=== PATIENT | female | born 1960 | race Caucasian/White ===

== ENCOUNTER 2019-02-07 10:29 | Outpatient (REF) | payer BC, SELFPAY ==
[2019-02-07 13:52] LABS: ALT 29 U/L (12-78); AST 24 U/L (15-37); Albumin 3.6 g/dL (3.4-5.0); Alkaline Phosphatase 77 U/L (46-116); Anion Gap 9.1 mmol/L (3-11); BUN 16 mg/dL (7-18); Bilirubin, Total 0.2 mg/dL (0.2-1.0); CO2 27.9 mmol/L (21.0-32.0); CREATININE 0.76 mg/dL (0.55-1.02); Calcium 9.1 mg/dL (8.5-10.1); Chloride 101 mmol/L (98-107); Glucose 93 mg/dL (70-100); Potassium 4.2 mmol/L (3.5-5.1); Sodium 138 mmol/L (136-145); Total Protein 6.6 g/dL (6.4-8.2)
== END 2019-02-07 10:49 ==
LOC: NCHCN 10:29
PROVIDERS: Visit Provider Nurse Practitioner
DX: I10 Essential (primary) hypertension (principal); Z13.220 Encounter for screening for lipoid disorders; Z13.29 Encounter for screening for other suspected endocrine disorder
CPT/HCPCS: 80053; 84443

== ENCOUNTER 2019-02-20 10:38 | Outpatient (CLI) | payer BC, SELFPAY ==
--- NOTE | 2019-02-20 11:29 | DI.MAMMO_ITS ---
SYMPTOM/DIAGNOSIS: SCREENING, Z12.31 MAMMOGRAMS: Mammograms were interpreted according to the usual protocol including computer analysis with CAD system, tomosynthesis and C view imaging. There are no priors for comparison. No suspicious microcalcifications are seen. No suspicious masses are seen in the left breast. There is an asymmetric breast tissue in the upper outer quadrant of the right breast. This area should be further evaluated with spot compression view. Ultrasound may be indicated at that time. IMPRESSION: Additional views of the right breast as described above. Category 0, breast density B. MQSA ASSESSMENT OF FINDINGS: Incomplete: Needs additional imaging evaluation. Category 0. Patient will receive a letter notifying them of these results. BI-RADS category B. There are scattered areas of fibroglandular density.
== END 2019-02-20 10:58 ==
PROVIDERS: PCP Nurse Practitioner; Visit Provider Nurse Practitioner
DX: Z12.31 Encounter for screening mammogram for malignant neoplasm of breast (principal); R92.8 Other abnormal and inconclusive findings on diagnostic imaging of breast
CPT/HCPCS: 77063; 77067

== ENCOUNTER 2019-02-27 00:44 | Outpatient (CLI) | payer BC, SELFPAY ==
--- NOTE | 2019-02-27 10:50 | DI.COMBO_ITS ---
SYMPTOMS/DIAGNOSIS: F/U MAMMO, ASYMMETRIC TISSUE UPPER OUTER QUAD RT BREAST ADDITIONAL VIEWS OF THE RIGHT BREAST AND RIGHT BREAST ULTRASOUND: Additional images are interpreted according to the usual protocol including tomosynthesis and 2D imaging. CC and MLO spot compression views were performed for areas of asymmetry in the upper outer quadrant of the right breast. No persistent mass is identified on the additional views performed. Right breast ultrasound shows no evidence of solid mass or cyst. IMPRESSION: Category I, negative mammogram. Yearly screening mammography is recommended. Breast density Category B. MQSA ASSESSMENT OF FINDINGS: Negative. Category 1. Patient will receive a letter notifying them of these results. BI-RADS category B. There are scattered areas of fibroglandular density.
== END 2019-02-27 01:04 ==
PROVIDERS: PCP Nurse Practitioner; Visit Provider Nurse Practitioner
DX: Z12.31 Encounter for screening mammogram for malignant neoplasm of breast (principal); R92.8 Other abnormal and inconclusive findings on diagnostic imaging of breast; N64.59 Other signs and symptoms in breast
CPT/HCPCS: 76642; 77063; 77067

== ENCOUNTER 2019-03-28 13:34 | Outpatient (REF) | payer BC, SELFPAY ==
--- NOTE | 2019-03-28 12:45 | PAPFT_PTH ---
PATIENT: Kandis Toribio LOC: [facility]#:[id number] AGE/SX: 58/F ROOM: RE03/28/[address]: Lian Oliver : 1960 BED: DIS: 03/28/2019 SPEC #: [id number] RECD: 03/29/19 12:53 STATUS: YUNI REAshwini #: [id number] GABRIELE: 03/28/19 12:[address]: Lian Oliver DEPT: [facility] Cytology RECD BY: Chela Houston Tissues: 1 - CX/ENDOCX FOR PAP SMEARS Procedures: PAP THIN PREP/UVM Screening HPV DNA PROBE Comments: [id number]
== END 2019-03-28 13:54 ==
LOC: NCHCN 13:34
PROVIDERS: PCP Nurse Practitioner; Visit Provider Nurse Practitioner
DX: Z00.00 Encounter for general adult medical examination without abnormal findings (principal); Z12.4 Encounter for screening for malignant neoplasm of cervix; Z11.51 Encounter for screening for human papillomavirus (HPV)
CPT/HCPCS: 88142; 87624

== ENCOUNTER 2021-07-18 09:53 | Emergency (ER) | payer SELFPAY ==
[2021-07-18 09:59] VITALS: BP 162/92; PULSE 83; RESP 16; TEMP 36.4; O2SAT 96
--- NOTE | 2021-07-18 10:15 | ED.GENADUL_ITS ---
Discharge Plan Disposition Patient Disposition: HOME Condition: Stable Discharge Details Clinical Impression: Infected dental caries Primary Care Provider: Lian Oliver ED Provider: Ryan Renee Home Meds and New Rx's Prescriptions: New amoxicillin-pot clavulanate [Augmentin] 875-125 mg tablet 1 tab PO Q12H Qty: 8 RF: 0 Continued fluoxetine [Prozac] 40 mg capsule 60 mg PO DAILY RF: 0 lisinopril 10 mg Tablet 10 mg PO DAILY RF: 0 Discharge Instructions Instructions: Amoxicillin/Clavulanate Potassium (By mouth), Dental Caries (ED) Additional Instructions: Please follow-up with your normal dental provider as planned for definitive care of your dental complaint. Please take antibiotics as prescribed until completely gone. You may use [id number] acetaminophen as needed for pain and discomfort. If you notice any fever chills, facial swelling, swelling of your tongue, or difficulty breathing you need to return immediately for reassessment. Medical Decision Making Patient reports continued dental pain and subjective facial swelling that began approximately 1 week ago and was placed upon antibiotics but now after finishing antibiotics 2 days ago has had a return and worsening of symptoms. Exam consis tent with dental pain with possible infection not abscessnoted at this time. no signs of deep neck space infection ( Retropharyngeal abscess, Michael's angina, Parapharyngeal space infection, Peritonsillar Abscess ([employer])) or Epiglottitis, No signs of trigeminal neuralgia. Pt non toxic and stable. encouraged to continue over the counter pain therapy and follow up with dental provider as soon as possible for definitive care of Dental complaint. Given that patient only had 5 days of ABX and a return of s/s consistant with infection pt placed back on ABX. After discussion of diagnosis and plan of care patient has no further needs, questions, or concerns and states clear understanding to return to the emergency department for any worsening symptoms. HPI General Date/Time Provider Initiated Documentation: 07/18/21 10:04 . Limitations to Documentation: no limitations . Information obtained by: patient . History of Present Illness 60 year old F presents to the emergency department with the chief complaint of right lower dental pain and swelling, described as moderate and similar to prior episodes, with intensity rated at 8. Quality is described as aching, and is localized to the right (lower jaw). Patient neck (and ear). Patient started experiencing this day(s) (7) and it has been constant. No exacerbating factors reported . Patient notes no other symptoms.. Patient did receive the following treatments prior to arrival, other (Finished 5 days of ABX 2 days ago) Related Data Home Medications Medication Instructions Recorded Confirmed amoxicillin-pot clavulanate 1 tab PO Q12H #8 tab 07/18/21 [Augmentin] fluoxetine [Prozac] 60 mg PO DAILY 07/18/21 07/18/21 lisinopril 10 mg PO DAILY 07/18/21 07/18/21 Previous Rx's Medication Instructions Recorded amoxicillin-pot clavulanate 1 tab PO Q12H #8 tab 07/18/21 [Augmentin] Allergies Allergy/AdvReac Type Severity Reaction Status Date / Time erythromycin AdvReac Uncoded 07/18/21 10:06 General Stated Complaint: DentalOral ANA: 4 Review of Systems Constitutional Constitutional: Denies chills and Denies fever(s) ENT Ears, Nose, Mouth, and Throat: Reports as per HPI, Denies change in voice, Reports dental pain, Denies dysphagia, Reports otalgia, Denies throat swelling and Denies tongue swelling Cardiovascular Cardiovascular: Denies chest pain and Denies dyspnea Respiratory Respiratory: Denies dyspnea, Denies stridor and Denies wheezing Gastrointestinal Gastrointestinal: Denies abdominal pain, Denies dysphagia, Denies nausea and Denies vomiting Integumentary/Breasts Skin/Breast: Denies rash Allergic/Immunologic Allergic/Immunologic: Denies throat swelling, Denies tongue swelling and Denies wheezing PFSH All Active Problems Infected dental caries (Acute) Social History Smoking/Tobacco Use Status: Former Tobacco Use Smoking risk assessment performed?: Yes Substance use type: does not use Exam Const General: cooperative Orientation: alert, awake and oriented x3 Limitations: mental status not altered [facility] Head: normal to inspection, normocephalic and atraumatic Ears: hearing grossly normal bilaterally, normal mastoids bilaterally and no periauricular adenopathy General nose exam: external nose normal Mouth: oropharynx normal, no drooling, no muffled voice, normal tongue and no trismus Teeth and gingiva: caries, poor dentition and other (Tooth decay noted to #18 with surrounding erythema) Throat: posterior oropharynx normal, tonsils normal and uvula midline Eyes General: appearance normal, both eyes and all related structures Pupils: PERRL Neck Neck: normal visual inspection, full ROM, no lymphadenopathy, no meningeal signs, trachea midline, supple, no anterior neck swelling and no midline deformity Resp Effort & Inspection: normal respiratory effort and able to speak in complete sentences Auscultation: clear to auscultation bilaterally Course Vital Signs Vital signs: Vital Signs Temperature 36.4 C L 07/18/21 09:59 Pulse 83 07/18/21 09:59 Respiratory Rate 16 07/18/21 09:59 Blood Pressure 162/92 H 07/18/21 09:59 Pulse Oximetry 96 07/18/21 09:59 Temperature 36.4 C L 07/18/21 09:59 Temperature Source Skin 07/18/21 09:59 Pulse 83 07/18/21 09:59 Respiratory Rate 16 07/18/21 09:59 Respiratory Effort Non-Labored 07/18/21 09:59 Blood Pressure 162/92 H 07/18/21 09:59 Blood Pressure Position Sitting 07/18/21 09:59 Pulse Oximetry 96 07/18/21 09:59 Oxygen Delivery Method Room Air 07/18/21 09:59 Oxygen Flow Rate 0 07/18/21 09:59 Pain Level 8 07/18/21 10:06
[2021-07-18] MEDS: Amoxicillin 875/Clav. 125 TAB PO (10:30)
--- NOTE | 2021-07-20 09:33 | NUR.NOTE ---
called to change prescription sent from Juliana in [facility] to Paige in [place]
== END 2021-07-18 10:40 | disposition home or self-care (01) ==
PROVIDERS: Emergency Provider Nurse Practitioner Family; PCP Nurse Practitioner
DX: K04.7 Periapical abscess without sinus (principal); K02.9 Dental caries, unspecified
CPT/HCPCS: 99283

== ENCOUNTER 2021-11-13 08:26 | Outpatient (REF) | payer BC, SELFPAY ==
[2021-11-13 14:32] LABS: HGB 13.4 g/dL (11.2-15.7); MCH 27.9 pg (27.0-33.0); MCHC 31.9 % (32.0-36.0); MCV 87.3 fL (80-95); MPV 9.2 fL (8.0-11.0); Platelet Count 317 10^3/uL (130-400); RBC 4.81 10^6/uL (3.93-5.22); RDW 12.6 % (11.7-14.6); RDW-SD 40.4 fL; WBC 5.36 10^3/uL (4.4-10.8)
[2021-11-13 14:49] LABS: Iron 86 ug/dL (50-170)
[2021-11-13 14:51] LABS: ALT 30 U/L (14-59); AST 26 U/L (15-37); Albumin 3.7 g/dL (3.4-5.0); Alkaline Phosphatase 76 U/L (46-116); Anion Gap 6.3 mmol/L (3-11); BUN 19 mg/dL (7-18); Bilirubin, Total 0.3 mg/dL (0.2-1.0); CO2 28.7 mmol/L (21.0-32.0); CREATININE 0.9 mg/dL (0.55-1.02); Calcium 8.6 mg/dL (8.5-10.1); Calculated LDL 201 mg/dL (<100); Chloride 101 mmol/L (98-107); Cholesterol 284 mg/dL (<200); Glucose 92 mg/dL (74-106); HDL Cholesterol 63 mg/dL (40-60); Potassium 4.4 mmol/L (3.5-5.1); Sodium 136 mmol/L (136-145); Total Protein 6.8 g/dL (6.4-8.2); Triglyceride 102 mg/dL (<150)
== END 2021-11-13 08:27 | disposition home or self-care (01) ==
LOC: NCHCN 08:26
PROVIDERS: PCP Nurse Practitioner; Visit Provider Nurse Practitioner Family
DX: Z00.00 Encounter for general adult medical examination without abnormal findings (principal); F41.8 Other specified anxiety disorders; I10 Essential (primary) hypertension; R07.9 Chest pain, unspecified; R42 Dizziness and giddiness; Z13.29 Encounter for screening for other suspected endocrine disorder; Z13.220 Encounter for screening for lipoid disorders; F39 Unspecified mood [affective] disorder
CPT/HCPCS: 80053; 80061; 85027; 83540; 84443

== ENCOUNTER → 2022-01-05 01:39 | Outpatient (CLI) | payer BC, SELFPAY ==
--- NOTE | 2022-01-05 | DI.MAMMO_ITS ---
Exam(s) MAMMO SCREENING EXAM: MAMMO SCREENING CLINICAL HISTORY: SCREENING, Z12.39. TECHNIQUE: Bilateral full field digital CC and MLO mammographic images were obtained with 3D tomosyn thesis and utilizing computer aided detection (CAD). COMPARISON: Prior mammograms were reviewed, the most recent being January 2019. FINDINGS: No new significant radiograph findings in left breast Asymmetric density in the right breast located 7 cm in from the nipple on the MLO view is unchanged f rom 2019. Small benign-appearing lymph node posterior to this region is also There are no new spiculated masses nor malignant appearing microcalcification groups. There is no significant architectural distortion nor skin thickening-retraction. IMPRESSION: No radiographic evidence of malignancy. Stable benign-appearing right breast findings BI-RADS Category 2 - Benign Findings Breast Density - Category B - Scattered areas of fibroglandular density Breast density Category C or D implies that the patient has dense breast tissue. Dense breast tissue can make it harder to find cancer on a mammogram. Dense breast tissue is also associated with an incr eased risk of breast cancer. This information about the result of the mammogram report was provided to the patient to raise their awareness. Use this report when you speak with the patient about their risks for breast cancer, which includes their family history. At that time, you may recommend additional screening tests (Ultrasoun d or MRI) as these tests may add significant information. A negative radiographic report should not delay biopsy if a dominant or clinically suspicious mass is present. Up to ten percent of cancers are not identified on mammography. A negative report may reinforce clinical impression. Adenosis and dense breasts may obscure an underlying neoplasm. False positive reports average 6 to 10%. Patient will receive a letter notifying them of these results.
== END ==
PROVIDERS: PCP Nurse Practitioner; Visit Provider Nurse Practitioner Family
DX: Z12.31 Encounter for screening mammogram for malignant neoplasm of breast (principal); N60.81 Other benign mammary dysplasias of right breast
CPT/HCPCS: 77063; 77067

== ENCOUNTER 2023-04-11 18:48 | Outpatient (REF) | payer SELFPAY ==
[2023-04-11 21:49] LABS: Abs Immature Grans 0.03 10^3/uL (0.0-0.06); Absolute Basophil Count 0.05 10^3/uL (0.0-0.2); Absolute Eosinophil Count 0.22 10^3/uL (0.0-0.7); Absolute Lymphocyte Count 1.48 10^3/uL (1.2-3.4); Absolute Monocyte Count 0.52 10^3/uL (0.1-0.8); Absolute Neutrophil Count 3.91 10^3/uL (1.2-6.7); Basophils % 0.8; Eosinophils % 3.5; HCT 38.2 % (36.0-46.0); HGB 12.7 g/dL (11.2-15.7); Immature Grans % 0.5; Lymphocytes % 23.8; MCHC 33.2 % (32.0-36.0); MCV 87 fL (80-95); MPV 9.4 fL (8.0-11.0); Monocytes % 8.4; Platelet Count 305 10^3/uL (130-400); RBC 4.38 10^6/uL (3.93-5.22); RDW 12.9 % (11.7-14.6); RDW-SD 41.3 fL; WBC 6.21 10^3/uL (4.4-10.8)
[2023-04-11 21:54] LABS: ALT 23 U/L (14-59); AST 26 U/L (15-37)
== END 2023-04-11 18:49 | disposition home or self-care (01) ==
LOC: NCHCN 18:48
PROVIDERS: PCP Nurse Practitioner; Visit Provider Nurse Practitioner Psychiatric/Mental Health
DX: F39 Unspecified mood [affective] disorder (principal); Z51.81 Encounter for therapeutic drug level monitoring; F41.8 Other specified anxiety disorders; Z79.899 Other long term (current) drug therapy
CPT/HCPCS: 84450; 84460; 85025

== ENCOUNTER 2023-05-30 14:41 | Outpatient (REF) | payer SELFPAY ==
[2023-05-30 15:32] LABS: Abs Immature Grans 0.05 10^3/uL (0.0-0.06); Absolute Basophil Count 0.04 10^3/uL (0.0-0.2); Absolute Eosinophil Count 0.08 10^3/uL (0.0-0.7); Absolute Lymphocyte Count 1.61 10^3/uL (1.2-3.4); Absolute Monocyte Count 0.54 10^3/uL (0.1-0.8); Absolute Neutrophil Count 3.75 10^3/uL (1.2-6.7); Basophils % 0.7; Eosinophils % 1.3; HGB 12.5 g/dL (11.2-15.7); Immature Grans % 0.8; Lymphocytes % 26.5; MCH 28.8 pg (27.0-33.0); MCHC 32.9 % (32.0-36.0); MCV 88 fL (80-95); MPV 8.9 fL (8.0-11.0); Monocytes % 8.9; Neutrophils % 61.8; Platelet Count 278 10^3/uL (130-400); RBC 4.34 10^6/uL (3.93-5.22); RDW 12.4 % (11.7-14.6); RDW-SD 39.8 fL; WBC 6.07 10^3/uL (4.4-10.8)
[2023-05-30 15:57] LABS: ALT 23 U/L (14-59); AST 21 U/L (15-37)
[2023-05-30 16:00] LABS: VALPROIC ACID 23.5 ug/mL
== END 2023-05-30 14:42 | disposition home or self-care (01) ==
LOC: NCHCN 14:41
PROVIDERS: PCP Nurse Practitioner; Visit Provider Nurse Practitioner Psychiatric/Mental Health
DX: F39 Unspecified mood [affective] disorder (principal); Z51.81 Encounter for therapeutic drug level monitoring
CPT/HCPCS: 80164; 84450; 84460; 85025

== ENCOUNTER 2023-06-22 11:27 | Outpatient (REF) | payer SELFPAY ==
[2023-06-22 15:26] LABS: Bilirubin Negative (Negative); Blood Trace-intact (Negative); Clarity Turbid (Clear); Glucose Negative (Negative); Ketones Negative (Negative); Leukocyte Esterase Moderate (Negative); Nitrite Positive (Negative); Urobilinogen 0.2 mg/dL (Up to 0.2)
[2023-06-22 15:33] LABS: Bacteria Few HPF (Negative); C & S Indicated? Yes; Casts Negative LPF (Negative); Crystals Negative HPF (Negative); Epithelial Cells Rare HPF (Negative); Mucus Trace (Negative); RBC 0-2 HPF (0-2); WBC >50 HPF (0-5)
== END 2023-06-22 11:28 | disposition home or self-care (01) ==
LOC: NCHCN 11:27
PROVIDERS: PCP Nurse Practitioner; Visit Provider Nurse Practitioner Family
DX: R30.0 Dysuria (principal); R82.89 Other abnormal findings on cytological and histological examination of urine
CPT/HCPCS: 87077; 81003; 81015; 87086

== ENCOUNTER 2023-07-21 14:04 | Outpatient (REF) | payer SELFPAY ==
[2023-07-21 18:26] LABS: HCT 37.3 % (36.0-46.0); HGB 12.4 g/dL (11.2-15.7); MCH 28.8 pg (27.0-33.0); MCHC 33.2 % (32.0-36.0); MCV 87 fL (80-95); MPV 8.7 fL (8.0-11.0); Platelet Count 318 10^3/uL (130-400); RDW 12.2 % (11.7-14.6); RDW-SD 38.6 fL; WBC 6.12 10^3/uL (4.4-10.8)
[2023-07-21 18:43] LABS: Anion Gap 3.5 mmol/L (3-11); BUN 13 mg/dL (7-18); CO2 30.5 mmol/L (21.0-32.0); CREATININE 0.8 mg/dL (0.55-1.02); Calcium 8.7 mg/dL (8.5-10.1); Chloride 100 mmol/L (98-107); Estimated GFR 82.23 (mL/min/1.73m2); Glucose 122 mg/dL (74-106); Potassium 4.4 mmol/L (3.5-5.1); Sodium 134 mmol/L (136-145)
[2023-07-21 19:01] LABS: Bilirubin Negative (Negative); Blood Negative (Negative); Clarity Clear (Clear); Glucose Negative (Negative); Ketones Negative (Negative); Leukocyte Esterase Small (Negative); Nitrite Negative (Negative); Specific Gravity 1.015 (1.005-1.025); Urobilinogen 0.2 mg/dL (Up to 0.2); pH 6.5 (5-8)
[2023-07-21 19:12] LABS: Bacteria Few HPF (Negative); Epithelial Cells Rare HPF (Negative); RBC 0-2 HPF (0-2)
[2023-07-21 19:13] LABS: C & S Indicated? Yes; Crystals Negative HPF (Negative); Mucus Negative (Negative)
== END 2023-07-21 14:05 | disposition home or self-care (01) ==
LOC: NCHCN 14:04
PROVIDERS: PCP Nurse Practitioner; Visit Provider Nurse Practitioner Family
DX: R39.89 Other symptoms and signs involving the genitourinary system (principal); R79.89 Other specified abnormal findings of blood chemistry
CPT/HCPCS: 80048; 85027; 87077; 81003; 81015; 87086; 87186

== ENCOUNTER 2023-12-21 21:34 | Outpatient (REF) | payer MEDICARE, SELFPAY ==
[2023-12-23 10:35] LABS: Lyme Ab w Rflx to Lyme Confirm Negative (Negative)
== END 2023-12-21 21:35 | disposition home or self-care (01) ==
LOC: NCHCN 21:34
PROVIDERS: Visit Provider Physician Assistant Medical
DX: R21 Rash and other nonspecific skin eruption (principal); Z11.8 Encounter for screening for other infectious and parasitic diseases
CPT/HCPCS: 86618

== ENCOUNTER 2024-01-09 20:23 | Outpatient (REF) | payer MEDICARE, SELFPAY ==
[2024-01-09 20:59] LABS: Abs Immature Grans 0.04 10^3/uL (0.0-0.06); Absolute Basophil Count 0.05 10^3/uL (0.0-0.2); Absolute Eosinophil Count 0.14 10^3/uL (0.0-0.7); Absolute Neutrophil Count 4.05 10^3/uL (1.2-6.7); Basophils % 0.8 %; Eosinophils % 2.2 %; HCT 39.9 % (36.0-46.0); HGB 13.2 g/dL (11.2-15.7); Immature Grans % 0.6 %; Lymphocytes % 26.6 %; MCH 28.7 pg (27.0-33.0); MCHC 33.1 % (32.0-36.0); MCV 87 fL (80-95); MPV 9.3 fL (8.0-11.0); Monocytes % 6.3 %; Neutrophils % 63.5 %; Platelet Count 329 10^3/uL (130-400); RDW 12.2 % (11.7-14.6); RDW-SD 38.5 fL; WBC 6.38 10^3/uL (4.4-10.8)
[2024-01-09 21:20] LABS: ALT 28 U/L (14-59); AST 34 U/L (15-37); Albumin 3.5 g/dL (3.4-5.0); Alkaline Phosphatase 91 U/L (46-116); Anion Gap 10.5 mmol/L (3-11); BUN 20 mg/dL (7-18); Bilirubin, Total 0.2 mg/dL (0.2-1.0); CO2 26.5 mmol/L (21.0-32.0); CREATININE 1.1 mg/dL (0.55-1.02); Calcium 8.5 mg/dL (8.5-10.1); Chloride 102 mmol/L (98-107); Estimated GFR 55.76 (mL/min/1.73m2); Glucose 110 mg/dL (74-106); Potassium 4.3 mmol/L (3.5-5.1); Sodium 139 mmol/L (136-145); TSH (W/Ref FT4) 2.39 uIU/mL (0.36-3.74); Total Protein 6.5 g/dL (6.4-8.2)
[2024-01-09 21:57] LABS: Hemoglobin A1C 5.9 % (<5.7)
[2024-01-11 11:55] LABS: Lyme Ab w Rflx to Lyme Confirm Positive (Negative)
[2024-01-11 15:59] LABS: Lyme IgG Ab Positive (Negative); Lyme IgM Ab Positive (Negative)
== END 2024-01-09 20:24 | disposition home or self-care (01) ==
LOC: NCHCN 20:23
PROVIDERS: Visit Provider Nurse Practitioner Family
DX: R73.9 Hyperglycemia, unspecified (principal); R53.83 Other fatigue
CPT/HCPCS: 80053; 86617; 83036; 84443; 85025; 86618